=== PATIENT | male | born 1970 | race Two or more races ===

== ENCOUNTER 2020-08-12 08:45 | Emergency (ER) | payer BC ==
[~2020-08-12] VITALS: Ht 177.8 cm; Wt 100.7 kg
[2020-08-12] MEDS ORDERED: Tetracaine 0.5% Opth 4ml Soln LEFT EYE ONE (09:15)
[2020-08-12] MEDS ORDERED: Fluorescein Strips LEFT EYE ONE (09:15)
[2020-08-12] MEDS ORDERED: OCUFLOX5 ML RIGHT EYE (09:27)
[2020-08-12 09:28] VITALS: BP 157/83
[2020-08-12 09:34] VITALS: BP 148/84
--- NOTE | 2020-08-12 09:35 | NUR ---
ER DISCHARGE NOTE: Patient is cleared to be discharged per ERMD, pt is aox4, on room air, with stable vital signs. pt was given dc and prescription instructions, pt was able to verbalize understanding, pt id band removed . pt is able to ambulate with steady gait. pt took all belongings.
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
== END 2020-08-12 09:35 | disposition home or self-care (01) ==
LOC: EMR 09:20
DX: S05.91XA Unspecified injury of right eye and orbit, initial encounter (principal); W22.8XXA Striking against or struck by other objects, initial encounter; Y92.9 Unspecified place or not applicable
CPT/HCPCS: 99282